=== PATIENT | male | born 1985 | race Caucasian/White ===

== ENCOUNTER 2022-12-30 01:23 | Emergency (ER) | payer SELFPAY ==
[~2022-12-30] VITALS: Ht 188 cm; Wt 113.4 kg
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
--- NOTE | 2022-12-30 01:30 | NUR ---
[facility] at bedside, and the patient refuses to be seen or treated. The patient wants to sign against medical advice. The ERMD Dr. Archer thoroughly explained to the patient the risks against leaving against medical advice despite his tachycardia in the 130's-140's and his elevated blood pressure readings, but the patient adamantly demands to leave against medical advice and understands the risks he is taking.
--- NOTE | 2022-12-30 01:40 | NUR ---
[facility] at bedside evaluating the patient.
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
--- NOTE | 2022-12-30 02:02 | NUR ---
Patient does not wish to proceed with medical care recommended by Dr. Archer. The patient is A/Ox4, is able to ambulate with steady gait. Speech is clear, speaks in complete sentences. The patient was given information related to possible complications, up to and including , which could occur as a result of leaving the hospital at this time. Patient verbalizes understanding of risks involved due to leaving against medical advice. Patient has signed AMA form.
[2022-12-30 02:08] VITALS: BP 150/102; O2SAT 98
== END 2022-12-30 02:09 | disposition left against medical advice (07) ==
LOC: ER 01:25
DX: F10.129 Alcohol abuse with intoxication, unspecified (principal); R00.0 Tachycardia, unspecified; I10 Essential (primary) hypertension; H57.04 Mydriasis; Y90.9 Presence of alcohol in blood, level not specified
CPT/HCPCS: A4663